=== PATIENT | female | born 1975 | race Asian ===

== ENCOUNTER 2020-12-16 10:15 | Outpatient (CLI) | payer BC, OTHER, SELFPAY ==
--- NOTE | ~2020-12-16 | XR_ITS ---
EXAMINATION: XR chest 2V 12/16/2020 10:30 INDICATION: Cough PROCEDURE: 2 view chest COMPARISON: No prior studies for comparison. FINDINGS: The lungs are clear. The cardiomediastinal silhouette is within normal limits. There are no pleural effusions. There is no pneumothorax suspected. IMPRESSION: 1: NO ACUTE CARDIOPULMONARY DISEASE. Reviewed, dictated and finalized at location B.
== END 2020-12-16 10:16 | disposition home or self-care (01) ==
LOC: ANHIMG 10:22
PROVIDERS: PCP Family Medicine; Visit Provider Family Medicine
DX: R05 Cough (principal)
CPT/HCPCS: 71046

== ENCOUNTER 2021-03-14 10:11 | Outpatient (CLI) | payer BC, OTHER, SELFPAY ==
--- NOTE | ~2021-03-14 | XR_ITS ---
EXAMINATION: XR lumbar spine min 4V DATE: 03/14/2021 10:35 INDICATION: Low back pain TECHNIQUE: Anteroposterior, lateral, and bilateral oblique views of the lumbar spine, and cone-down l ateral view of the lumbosacral junction were obtained. COMPARISON: 05/07/2019 FINDINGS: There is no fracture, dislocation, or subluxation. The vertebral body heights are normal. T here is unchanged mild loss of intervertebral disc space height at L4-5 with anterior endplate osteop hytes at this disc level. There is mild facet osteoarthritis of the lower lumbar spine IMPRESSION: 1. Mild lumbar spondylosis without acute findings or significant interval change. Reviewed, dictated and finalized at location A. IMPRESSION: 1. Mild lumbar spondylosis without acute findings or significant interval kimble theo
== END 2021-03-14 10:12 | disposition home or self-care (01) ==
PROVIDERS: PCP Family Medicine; Visit Provider Family Medicine
DX: M47.896 Other spondylosis, lumbar region (principal)
CPT/HCPCS: 72110

== ENCOUNTER → 2021-11-29 12:31 | Outpatient (CLI) | payer OTHER, SELFPAY ==
--- NOTE | ~2021-11-29 | US_ITS ---
EXAMINATION: US pelvic complete DATE: 11/29/2021 12:55 INDICATION: Hypertrophy of the uterus TECHNIQUE: Multiple transabdominal and endovaginal sonographic images of the pelvis were obtained. COMPARISON: None. FINDINGS: The uterus measures 11.7 x 4.8 x 6 cm. There is a 6.7 x 8.4 x 6.7 cm hypoechoic mass of the right uterine body with the appearance of an intramural fibroid The endometrial complex measures 13 mm. The right ovary is not visualized however no right adnexal abnormality is seen. The left ovary me asures 2.7 x 2.9 x 2.7 cm. There is normal vascular flow in the left ovary. There is no free fluid in the pelvis. IMPRESSION: 1. 8.4 cm mass of the right uterine body with the appearance of an intramural fibroid. Reviewed, dictated and finalized at location A. IMPRESSION: 1. 8.4 cm mass of the right uterine body with the appearance of an intramural f ibroid.
== END ==
PROVIDERS: PCP Family Medicine; Visit Provider Family Medicine
DX: N85.2 Hypertrophy of uterus (principal)
CPT/HCPCS: 76856

== ENCOUNTER 2024-01-27 08:07 | Outpatient (CLI) | payer OTHER, SELFPAY ==
--- NOTE | ~2024-01-27 | US_ITS ---
Limited Abdominal Sonogram: Real-time sonographic imaging of the right upper quadrant was performed. Clinical History: Right upper quadrant pain Findings: The liver appears normal with no evidence of solid mass lesion or bile duct dilatation. Sm all hepatic cyst present. Main portal vein demonstrates normal direction of flow. The gallbladder is well distended, and appears normal with no evidence of gallstone or wall thickening. The common bile duct measures 4 mm. The visualized pancreas, aorta, and IVC are unremarkable. Impression: No significant abnormality seen. Reviewed, dictated and finalized at location M. Impression: No significant abnormality seen.
== END 2024-01-27 08:08 | disposition home or self-care (01) ==
LOC: ANHIMG 08:09
PROVIDERS: PCP Family Medicine; Visit Provider Physician Assistant
DX: R17 Unspecified jaundice (principal)
CPT/HCPCS: 76705

== ENCOUNTER 2024-02-13 10:11 | Outpatient (CLI) | payer OTHER, SELFPAY | END 2024-02-13 10:12 | disposition home or self-care (01) | LOC: ANHSURGERY 10:14 | PROVIDERS: PCP Family Medicine; Visit Provider Obstetrics & Gynecology | DX: D25.9 Leiomyoma of uterus, unspecified (principal) | CPT/HCPCS: 36415; 86850; 86900; 86901 ==

== ENCOUNTER 2024-02-19 16:25 | Inpatient (IN) | payer OTHER, SELFPAY ==
[2024-02-11 12:37] VITALS: BMI 20.8
--- NOTE | 2024-02-11 12:43 | PC.NURSE ---
Report to the Outpatient Waiting Room, entrance under the green pavilion located off [facility], at time _0830_ on date _[id number]_. Planned Procedure Time: _1030_. Time changes happen often and if your time is changed the preop area will call you the afternoon before. - You and your visitor will be asked to self-screen and do not enter if you have any COVID symptoms. - A mask is optional within the hospital at this time. Patients may have clear liquids (water, carbonated beverages, clear teas, apple juice) until 3 hours prior to surgery with a maximum of 20 ounces. - No food from midnight until time of surgery Take the following medications with a SIP of water the morning of surgery: ____None DO NOT STOP ANY OF YOUR OTHER PRESCRIPTION MEDICATIONS PRIOR TO SURGERY ?EXCEPT THE FOLLOWING Medications to discontinue per physician Multivitamin Date to take last [id number]____[id number] Please no make-up, nail kazakh, hairspray, perfume, deodorant, or body powder the day of surgery. No jewelry (including any body piercings) or valuables the day of surgery, leave them at home. Please take a shower or bath the night before, or the morning of, surgery with an antibacterial soap. Wear comfortable, loose fitting clothing. - Jewelry must be removed prior to entering the operating room. Rings and piercings that are not removed may be cut off. - The hospital will not accept responsibility for valuables. - Please leave all valuables, including medications, at home the day of surgery. If you are going home after surgery, a licensed limb driver must drive you home. - NO public transportation without another adult if you receive anesthesia. - We recommend that an adult stay with you for 24 hours following discharge. - We also recommend that you do not drive, make important decision, drink alcoholic beverages, or take any drugs that were not prescribed by your health care provider for at least 24 hours after your discharge time. Follow any additional instructions given to you from your surgeon. If you or anyone in your household have experienced Covid symptoms in the past week, please notify your surgeon or the nurse liaison at the phone number below for possible testing. Telephone instructions given to _Lin_and asked if any additional questions and then verbalized understanding. Patient advised to call surgeon office or pre surgery nurse liaison [phone] if any additional questions.
[2024-02-19] VITALS (10 sets, daily range): BP systolic 93–106; BP diastolic 53–67; PULSE 66–94; RESP 12–20; TEMP 35.9–37.3; O2SAT 98–100
--- NOTE | ~2024-02-19 | XR_ITS ---
EXAMINATION: XR abdomen/kub 1V DATE: 02/20/2024 11:13 INDICATION: Stent placement. TECHNIQUE: A supine view of the abdomen was obtained. COMPARISON: None. FINDINGS: There are no dilated loops of bowel. There is a right internal ureteral stent in expected p osition. A surgical drain overlies the pelvis. IMPRESSION: 1. Right internal ureteral stent in expected position. Reviewed, dictated and finalized at location E.
[2024-02-19] MEDS: ACETAMINOPHEN 500 MG TABLET 1000 MG PO (08:55)
[2024-02-19] MEDS: KETOROLAC 15 MG/ML VIAL (*BKC) IV PUSH (09:05)
--- NOTE | 2024-02-19 09:51 | P.PNAN_ITS ---
Anes - Initial Pre Proc Eval Procedure: Operation Date: 02/19/24 10:30 Proposed Procedures p Total Abdominal Hysterectomy with Bilateral Salpingectomy - Raj Munroe MD Date/Time: 02/19/24 09:51 Surgeon: Raj Munroe MD Pre Op Diagnosis: uterine leiomyoma Patient Data Age: 49 Gender: F Height: 1.65 m Weight: 54.5 kg Last Vital Signs Temp 36.6 C 02/19/24 08:39 Pulse 66 02/19/24 08:39 Resp 20 02/19/24 08:39 BP 106/67 02/19/24 08:39 Pulse Ox 100 02/19/24 08:39 O2 Del Method Room Air 02/19/24 08:39 Allergies Allergy/AdvReac Type Severity Reaction Status Date / Time No Known Allergies Allergy Unverified 02/19/24 08:41 Home Medications Medication Instructions Recorded Confirmed Type multivitamin 1 tablet PO DAILY 02/11/24 02/19/24 History Patient hx anesthesia problems: none Family hx anesthesia problems: none Results Review: All pre-operative results and documents have been reviewed as part of the pre- operative evaluation. [facility] Social History Social History Social History: Smoking status: Never smoker Second hand tobacco smoke exposure: No Alcohol intake: current Drinks per week: 1 Alcohol use details: Occasionally Substance use: never Substance use type: does not use Living arrangements: with family Occupation/Education: occupation Gender identity (if verbalized by the patient): Female Sexual Orientation (if Verbalized by the Patient): Straight or Heterosexual Spiritual care concerns: No Anes - Eval Final PreProcedure Day of Procedure 02/19/24 09:51 Patient weight: normal Heart: regular rate and rhythm Lungs: clear to auscultation Airway: Mallampati scale class II Neurological: alert and oriented Last oral intake: >/= 8 hours ASA classification: I Emergent: no Anesthetic plan: proceed Anesthesia type and monitoring: general and standard monitoring Results Review: All pre-operative results and documents have been reviewed as part of the pre- operative evaluation. Informed Consent: The patient's anesthetic plan and its attendant risks and benefits were discussed with the patient/family/POA. Questions were solicited and answers provided to the satisfaction of the patient/family/POA.
[2024-02-19] MEDS: SCOPOLAMINE 1 MG PATCH 1 PATCH TRANSDERM (10:03)
--- NOTE | 2024-02-19 10:09 | WPDHPUPDATE1 ---
History and Physical Update Update Date/Time: 02/19/24 10:09 History and Physical has been reviewed, including an updated exam of the patient. There are NO changes in the patient's condition. Risks, benefits, and alternatives have been discussed and questions answered. Patient agrees to proceed with procedure.
[2024-02-19] MEDS: ceFAZolin 2 GM/D5W 50 ML 2 GM/50 ML BAG IVPB (10:16)
--- NOTE | 2024-02-19 13:10 | PM.CNGS ---
Assessment and Plan Assessment and plan (1) Rectal mass: Code(s): K62.89 - Other specified diseases of anus and rectum Status: Chronic Assessment and Plan: Small 1.5 x 1 cm rectal nodule contiguous with a fibroid nodule associated with attachment to the uterine fibroid. This is on the anterior aspect of the upper rectum. Exact etiology unknown. Discussed with Dr. Munroe during surgery. Recommend outpatient colonoscopy once patient significantly healed from her hysterectomy. If lesions still present, can be biopsied and decisions made regarding resection. My impression intraoperatively is that this is some of the uterine fibroid that has grown on an just inside the upper rectum. (2) Enlarged uterus: Code(s): N85.2 - Hypertrophy of uterus Status: Chronic Assessment and Plan: Large fibroid uterus, already removed at the time of my evaluation. History of Present Illness Consult details Consult date: 02/19/24 Reason for consult: other (Rectal nodule noted during pelvic surgery) Requesting physician: Raj Munroe MD Narrative: The patient is a 49-year-old woman who has had pelvic pain and is known to have an extremely large leiomyoma of the uterus. She was taken to surgery today by Dr. Munroe and during the pelvic dissection, the fibroid uterus was stuck to the anterior wall of the rectum. After the uterus had been removed, Dr. Munroe noted that there was an intraluminal nodule or mass on the anterior wall of the rectum adjacent to the attachment of the leiomyoma. I was asked to see the patient intraoperatively for evaluation. Review of Systems Review of Systems: ROS unobtainable: Yes unobtainable due to endotracheal tube PMFSH Social History Social History Social History: Smoking status: Never smoker Second hand tobacco smoke exposure: No Alcohol intake: current Drinks per week: 1 Alcohol use details: Occasionally Substance use: never Substance use type: does not use Living arrangements: with family Occupation/Education: occupation Gender identity (if verbalized by the patient): Female Sexual Orientation (if Verbalized by the Patient): Straight or Heterosexual Spiritual care concerns: No Meds Home Medications and Allergies Home Medications Medication Instructions Recorded Confirmed Type multivitamin 1 tablet PO DAILY 02/11/24 02/19/24 History Allergies Allergy/AdvReac Type Severity Reaction Status Date / Time No Known Allergies Allergy Unverified 02/19/24 08:41 Vital Signs Vital Signs - 24 hr 02/19/24 08:39 Temperature 36.6 C Pulse Rate 66 Respiratory Rate 20 Blood Pressure 106/67 Pulse Oximetry 100 Oxygen Delivery Room Air Exam Const: General: other (Under general anesthesia) GI: Inspection: incision (Midline lower abdominal incision) and other (Small fibroid nodule upper rectum anterior wall) GI Palp: Yes Palpable mass present (upper rectum, anterior wall is a 1.5 x 1 cm firm, fibrotic adherent nodule) and Yes Other GI palpation findings present (Fibroid nodule external to rectum but contiguous to intraluminal nodule) Results Labs Labs: All other labs normal.
--- NOTE | 2024-02-19 13:28 | SUR.OPER ---
6 Fr. Contour stent taken out and 4.8Fr. stent repacement inserted
--- NOTE | 2024-02-19 13:38 | SUR.OPER ---
Dr. Munroe asked to update family and he agrees.
--- NOTE | 2024-02-19 14:14 | P.CONUR_ITS ---
Assessment and Plan Assessment and plan (1) Transection of ureter of right [place] kidney: Code(s): S37.10XA - Unspecified injury of ureter, initial encounter Status: Acute Assessment and Plan: proceed with intraoperative repair Urology Consult Note HPI Date Seen: 02/19/24 Time Seen: 14:14 Requesting Physician: Raj Munroe MD Primary Care Provider: Leena Briceno MD Consult Narrative Reason for consult: For intra operative right ureteral transection Narrative: Elise Ray is a 49 year old female undergoing an open hysterectomy for an extremely large uterus. Asked to see the patient regarding a intraoperative right ureteral transection. Unable to get any other history from patient. [facility] Social History Social History Social History: Smoking status: Never smoker Second hand tobacco smoke exposure: No Alcohol intake: current Drinks per week: 1 Alcohol use details: Occasionally Substance use: never Substance use type: does not use Living arrangements: with family Occupation/Education: occupation Gender identity (if verbalized by the patient): Female Sexual Orientation (if Verbalized by the Patient): Straight or Heterosexual Spiritual care concerns: No Meds Home Medications and Allergies Home Medications Medication Instructions Recorded Confirmed Type multivitamin 1 tablet PO DAILY 02/11/24 02/19/24 History Allergies Allergy/AdvReac Type Severity Reaction Status Date / Time No Known Allergies Allergy Unverified 02/19/24 08:41 Vital Signs Vital Signs - 24 hr 02/19/24 08:39 Temperature 36.6 C Pulse Rate 66 Respiratory Rate 20 Blood Pressure 106/67 Pulse Oximetry 100 Oxygen Delivery Room Air Results Labs 02/19/24 14:02
[2024-02-19 14:15] LABS: Hemoglobin 8.9 g/dL (12.0-15.0)
--- NOTE | 2024-02-19 14:15 | P.OP_ITS ---
Procedure Note - Detailed Date of Procedure 02/19/24 Pre-op Diagnosis uterine leiomyoma transected right ureter Post-op Diagnosis Same Procedure Performed exploration with repair of transected right ureter, right ureteral stent placement, flexible cystoscopy Surgeon Skyler Rodriguez MD Anesthesia General Description of Procedure patient is already in the operating room status post removal of a large uterine mass. It was noted that she had transection of the right ureter. Evaluation reveals a clean transection. There was approximately 2-3 inches of distal ureter available and plenty of length on the proximal side. At this point time the ureter was spatulatrd. the area that had been transected was further cleaned and sent for separate pathologic review. 4-0 chromic on an RB1 was used to approximate the 2 ureters. The distal ureters fairly narrow and as such a 4.8 Czech contour stent was placed. Flexible cystoscopy was performed to place the wire all the way to the kidney. 4.8 Czech stent was then passed over it. Distal end was coiled in the bladder. A Alex-Azul drain will be placed at the termination procedure by Dr. Munroe. Stent will need to remain for least 6 weeks time. this completes dictation. Please send a copy of op note to my office Estimated Blood Loss 10 Drains Yes Packing No Pathology Yes Complications No immediate complications Condition Stable Disposition PACU
[2024-02-19] MEDS: ceFAZolin SODIUM 1 GM VIAL 2 GM IV PUSH (14:18)
[2024-02-19] MEDS: LACTATED RINGERS 1,000 ML 30 ML IV CONT ×4 (15:02)
[2024-02-19] MEDS: fentaNYL CITRATE INJ (*CRX) 100 MCG/2 ML VIAL 25 MCG IV PUSH ×5 (15:13→16:20)
--- NOTE | 2024-02-19 15:39 | P.OP_ITS ---
Procedure Note - Detailed Date of Procedure 02/19/24 Pre-op Diagnosis uterine leiomyoma , menorrhagia Post-op Diagnosis Same Procedure Performed total abdominal hysterectomy Surgeon Raj Munroe MD Anesthesia General Indications menorrhagia, fibroid uterus, very large, pelvic pain Findings enlarged fibroid uterus, 2500 g, extended above the umbilicus, normal appearing ovaries and tubes Description of Procedure the patient was taken to the operating room. She was prepped and draped in the dorsal supine position after induction of general anesthesia. vertical skin incision was made with scalpel. This carried down to the level the fascia with the knife. The rectus bellies were the midline. The preperitoneal fat was dissected bluntly the peritoneal cavity was entered bluntly. The per itoneal incision extended superiorly good visualization of the bladder. The uterus was tilted out of the pelvis. It was tightly encompassed by the skin incision at the base. Using the LigaSure cautery and clamping and cutting with suture ligation all of the surrounding connective tissue was from the uterus. The anatomy was very distorted. The suppression of the tissue was done tightly along the uterus all along the sides. The pedicles were clamped and transected, ligated in a stepwise fashion down to the cervix. While in the uterus was still in the pelvis. The ureters were examined. The right ureter appeared to be ligated. It was stretched up along the side of the uterus. the procedure was continued. The cervix paracervical tissue was clamped transected and ligated the cervix was then amputated with clamps across the vagina. Pedicles that were clamped were ligated and the vagina was closed with an 0 Vicryl in a running fashion. The rectum was adherent to the back of the cervix. It had to be dissected using sharp and blunt dissection. It was noted that there was a mass associated with the rectum. General surgery was called to evaluate the mass. It is uncertain the location of the mass. It may be transmural, intraluminal, or adherent to the surface of the rectum. Dr. Adams was present to palpate and examined. Please see his consult note. A primary reanastomosis of the the right ureter. This was performed by Dr. Rodriguez. please see his consult and help. After the reanastomosis of the ureter. The abdomen was closed. O loop PDS was used to close the vertical fascial incision. Subcutaneous tissue was irrigated and bleeders were cauterized. The pelvis and abdomen were irrigated prior to closure of the abdominal wall. Copious irrigation was used x2 to thoroughly irrigated. A Alex-Azul drain was placed in pelvis and the drain was placed through the right abdominal wall. It was sewn in with a nylon suture. The skin was closed with subcuticular nicohlas. The Insorb stapler was used. Patient tolerated the procedure well. She taken recovery room stable condition. Sponge lap needle counts were correct x2. Estimated Blood Loss 800 Pathology Yes Complications Other complications ( transection of ureter) Condition Stable
--- NOTE | 2024-02-19 16:35 | PC.NURSE ---
This patient, Elise Ray, was received from PACU on 02/19/24 at 1635. Patient/family oriented to unit policies and routines
[2024-02-19] MEDS: SIMETHICONE 80 MG TAB.CHEW PO (17:06)
[2024-02-19] MEDS: DEXTROSE 5%/0.45% SOD CHL 1,000 ML 125 ML IV CONT (17:07)
[2024-02-19] MEDS: HYDROcodone/acetaminophen (*CRX) 5-325 MG TABLET 1 TAB PO (21:20)
[2024-02-19] MEDS: ONDANSETRON INJ 4 MG/2 ML VIAL IV PUSH (21:25)
[2024-02-20] VITALS (10 sets, daily range): BP systolic 84–100; BP diastolic 47–66; PULSE 73–93; RESP 12–18; TEMP 36.9–38.1; O2SAT 98–100
[2024-02-20] MEDS: SODIUM CHLORIDE 0.9% IV 500 ML 999 ML (01:34)
[2024-02-20 04:46] LABS: Hematocrit 25.5 % (37.0-47.0); Hemoglobin 8.5 g/dL (12.0-15.0); Mean Corpuscular HGB Conc 33.3 g/dl (32-36); Mean Corpuscular Hemoglobin 30.6 pg (26-34); Mean Corpuscular Volume 91.7 fl (80-100); Platelet Count Result 153 k/mm3 (150-375); Red Blood Count 2.78 M/mm3 (4.2-5.4); Red Cell Distribution Width 13.8 % (11.5-14.5)
[2024-02-20] MEDS: SODIUM CHLORIDE 0.9% IV 250 ML 30 ML IV CONT (05:02)
[2024-02-20] MEDS: SIMETHICONE 80 MG TAB.CHEW PO ×3 (08:24→17:15)
[2024-02-20] MEDS: HYDROcodone/acetaminophen (*CRX) 5-325 MG TABLET 1 TAB PO ×2 (08:25→21:18)
--- NOTE | 2024-02-20 10:45 | WPDUROPN2 ---
Progress Note: A&P Assessment and Plan (1) Transection of ureter of right [place] kidney: Code(s): S37.10XA - Unspecified injury of ureter, initial encounter Status: Acute Assessment and Plan: Right ureteral stent to remain x6 weeks. Minimal FIDELINA drainage - will perhaps remove tomorrow. Duration of Bearden catheter to be determined by FIDELINA output. All above discussed with pt. and her . Subjective Subjective Date/Time Seen: 02/20/24 10:45 Interval history: Comfortable, no complaints Review of Systems Cardiovascular: Cardiovascular: Denies chest pain, Denies lightheadedness, Denies palpitations and Denies dyspnea Respiratory: Respiratory: Denies dyspnea Gastrointestinal: Gastrointestinal: Denies diarrhea, Denies nausea and Denies vomiting Genitourinary: Genitourinary: Denies hematuria and Denies dysuria Endocrine: Endocrine: Denies palpitations Exam Const: General: no acute distress Resp: Effort & Inspection: normal respiratory effort GI: Inspection: non-distended and other (incision clean and dry, scant serous FIDELINA drainage) GI Palp: No abdominal tenderness and No Guarding due to palpation present (GI) Auscultation: normal bowel sounds Urinary Catheter: Urinary Catheter: patent and draining and urine clear Objective Data Vital Signs Vital Signs: Vital Signs - 24 hr 02/19/24 15:02 02/19/24 15:15 02/19/24 15:30 Temperature 96.7 F L Pulse Rate 90 82 86 Respiratory Rate 18 16 14 Blood Pressure 103/61 98/59 L 101/61 Pulse Oximetry 100 100 100 Oxygen Delivery Simple Face Mask Simple Face Mask Room Air Oxygen Flow Rate 8 8 02/19/24 15:45 02/19/24 16:00 02/19/24 16:15 Temperature Pulse Rate 87 85 94 Respiratory Rate 16 12 15 Blood Pressure 103/59 L 100/58 L 101/62 Pulse Oximetry 100 98 99 Oxygen Delivery Room Air Room Air Room Air Oxygen Flow Rate 02/19/24 16:45 02/19/24 19:10 02/19/24 23:00 Temperature 98.6 F 99.1 F 98.5 F Pulse Rate 90 93 84 Respiratory Rate 18 12 12 Blood Pressure 98/56 L 100/53 L 93/59 L Pulse Oximetry 100 98 98 Oxygen Delivery Oxygen Flow Rate 02/20/24 05:02 02/20/24 05:17 02/20/24 04:29 Temperature 98.7 F 98.9 F 98.6 F Pulse Rate 89 85 93 Respiratory Rate 12 14 18 Blood Pressure 89/47 L 95/56 L 87/48 L Pulse Oximetry 100 100 98 Oxygen Delivery Oxygen Flow Rate 02/20/24 04:15 02/20/24 06:17 02/20/24 07:17 Temperature 98.6 F 99.3 F 99.3 F Pulse Rate 93 85 86 Respiratory Rate 18 12 16 Blood Pressure 87/48 L 96/55 L 93/54 L Pulse Oximetry 98 98 100 Oxygen Delivery Oxygen Flow Rate 02/20/24 07:30 Temperature 99.3 F Pulse Rate 86 Respiratory Rate 16 Blood Pressure 93/54 L Pulse Oximetry 100 Oxygen Delivery Oxygen Flow Rate Intake/Output Intake/Output: Intake & Output 02/17/24 02/18/24 02/19/24 02/20/24 23:59 23:59 23:59 23:59 Intake Total 150 2867 Output Total 475 1730 Balance -325 1137 Meds/Results Medications: Active Medications Generic Name Dose Route Start Last Admin Trade Name Freq PRN Reason Stop Dose Admin Hydrocodone Bitart/Acetaminophen 1 tab 02/19/24 16:25 02/20/24 08:25 Hydrocodone/Acetaminophen (*Crx) 5-325 Mg Tablet PO 1 tab Q3H PRN Administration Pain Rated 5 or Less Hydrocodone Bitart/Acetaminophen 1 tab 02/19/24 16:25 Hydrocodone/Acetaminophen (*Crx) 10-325 Mg Tablet PO Q3H PRN Pain Rated 6 or Greater Dextrose/Sodium Chloride 1,000 mls @ 125 mls/hr 02/19/24 16:25 02/20/24 05:22 Dextrose 5% Sodium Chloride 0.45% IV CONT Not Given .Q8H LUNA Sodium Chloride 250 mls @ 30 mls/hr 02/20/24 04:32 02/20/24 05:02 Normal Saline Iv IV CONT 02/20/24 12:51 30 mls/hr .Q8H20M STA Administration Ondansetron HCl 4 mg 02/19/24 16:25 02/19/24 21:25 Ondansetron Inj 4 Mg/2 Ml Vial IV PUSH 4 mg Q6H PRN Administration Nausea Simethicone 80 mg 02/19/24 17:00 02/20/24 08:24 Simethicone 80 Mg Tab.Ch
--- NOTE | 2024-02-20 12:01 | PM.GYNPNOP ---
CONCRETE MASON - A/P Assessment and plan (1) Transection of ureter of right [place] kidney: Code(s): S37.10XA - Unspecified injury of ureter, initial encounter Status: Acute Plan 49-year-old female who is postop day 1. After a total abdominal hysterectomy december. She had extraordinarily large fibroid uterus. It was 2500 g. She is a mere 55 kg. She had ureter transection during the surgery. Primary repair, reanastomosis of the ureter performed by . She is recovering well. She has modest pain. She has a drain that has minimal output in the pelvis. She has stent in her right ureter. She is blood tinged urine. She received a unit of blood. She had marked anemia after the case. A unit of blood brought her hemoglobin to 8.9. We will continue to observe the patient and consider discharge tomorrow. discussed fully with Dr. Velasquez. Will consider further tomorrow. Postoperative Procedures: Procedures Operation Date: 02/19/24 10:30 Actual Procedure Side Surgeon p Total Abdominal Hysterectomy with Bilateral Salpingectomy, exam under anesthesia by general surgery, exploration right ureter with ureteral to ureteral anastamosis, flexible cystoscopy by urology Bilateral Raj Munroe MD Postoperative day: 1 Postoperative status: doing well Postoperative plan: see orders Time Spent With Patient Time: Total time spent is greater than 50% in coordination of care (as documented) at patient's floor/unit and/or counseling patient: Time with patient: 15 - 25 minutes CONCRETE MASON- PN:Subj Post-Op Subjective Date/time seen: 02/20/24 12:01 Interval history: Comfortable, no complaints, Subjective: patient reports feeling better, patient has no complaints and pain is well controlled Exam Const: General: healthy appearing, comfortable and no acute distress Resp: Auscultation: clear to auscultation bilaterally, no rales, no rhonchi and no wheezes Cardio: Rate: regular rate Heart sounds: no click, no murmurs and no rubs GI: Inspection: non-distended Auscultation: normal bowel sounds Extrem: General: normal to inspection, no pedal edema and no calf tenderness CONCRETE MASON - PN: Obj Data Vital Signs Vital Signs: Vital Signs - 24 hr 02/19/24 15:02 02/19/24 15:15 02/19/24 15:30 Temperature 96.7 F L Pulse Rate 90 82 86 Respiratory Rate 18 16 14 Blood Pressure 103/61 98/59 L 101/61 Pulse Oximetry 100 100 100 Oxygen Delivery Simple Face Mask Simple Face Mask Room Air Oxygen Flow Rate 8 8 02/19/24 15:45 02/19/24 16:00 02/19/24 16:15 Temperature Pulse Rate 87 85 94 Respiratory Rate 16 12 15 Blood Pressure 103/59 L 100/58 L 101/62 Pulse Oximetry 100 98 99 Oxygen Delivery Room Air Room Air Room Air Oxygen Flow Rate 02/19/24 16:45 02/19/24 19:10 02/19/24 23:00 Temperature 98.6 F 99.1 F 98.5 F Pulse Rate 90 93 84 Respiratory Rate 18 12 12 Blood Pressure 98/56 L 100/53 L 93/59 L Pulse Oximetry 100 98 98 Oxygen Delivery Oxygen Flow Rate 02/20/24 05:02 02/20/24 05:17 02/20/24 04:29 Temperature 98.7 F 98.9 F 98.6 F Pulse Rate 89 85 93 Respiratory Rate 12 14 18 Blood Pressure 89/47 L 95/56 L 87/48 L Pulse Oximetry 100 100 98 Oxygen Delivery Oxygen Flow Rate 02/20/24 04:15 02/20/24 06:17 02/20/24 07:17 Temperature 98.6 F 99.3 F 99.3 F Pulse Rate 93 85 86 Respiratory Rate 18 12 16 Blood Pressure 87/48 L 96/55 L 93/54 L Pulse Oximetry 98 98 100 Oxygen Delivery Oxygen Flow Rate 02/20/24 07:30 02/20/24 11:15 Temperature 99.3 F 100.6 F H Pulse Rate 86 76 Respiratory Rate 16 16 Blood Pressure 93/54 L 84/50 L Pulse Oximetry 100 100 Oxygen Delivery Oxygen Flow Rate Intake/Output Intake/Output: Intake & Output 02/17/24 02/18/24 02/19/24 02/20/24 23:59 23:59 23:59 23:59 Intake Total 150 2867 Output Total 475 1730 Balance -325 1137 Meds/Results Medications: Active Medications Generic Name Dose Route Start Last Admin Trade Name Freq PRN Reason S
[2024-02-20] MEDS: ceFAZolin 1 GM/NS 50 ML 1 GM/50 ML BAG IVPB ×2 (12:28→20:21)
[2024-02-20] MEDS: DEXTROSE 5%/0.45% SOD CHL 1,000 ML 125 ML IV CONT (12:30)
--- NOTE | 2024-02-20 12:59 | WPDANESPN ---
Anes - Prog Note Post-Op Date/Time: 02/20/24 12:59 Cardiovascular status: normal Respiratory status: normal Airway patency: baseline Mental status: baseline Post-Op hydration status: normal Vital Signs: Last Vital Signs Temp 38.1 C H 02/20/24 11:15 Pulse 76 02/20/24 11:15 Resp 16 02/20/24 11:15 BP 84/50 L 02/20/24 11:15 Pulse Ox 100 02/20/24 11:15 O2 Del Method Room Air 02/19/24 16:15 O2 Flow Rate 8 02/19/24 15:15 Pain Score (VAS): 2-3/10 I/O: Intake & Output 02/19/24 02/20/24 02/20/24 23:59 07:59 15:59 Intake Total 100 2867 240 Output Total 20 1730 1470 Balance 80 1137 -1230 Laboratory Tests 02/20/24 04:41 02/19/24 02/19/24 02/20/24 12:30 14:02 04:41 WBC 15.0 H RBC 2.78 L Hgb 8.9 L 8.5 L Hct 27.0 L 25.5 L MCV 91.7 MCH 30.6 MCHC 33.3 RDW 13.8 Plt Count 153 MPV 11.0 H Blood Type B Positive Antibody Screen Negative Crossmatch See Detail Post-procedural complaints: nausea (Patient states feeling nausea with dinner last night and did not eat much. Encouraged patient to try liquids and progress as tolerated. Patient did not feel nauseous at this time. ) Patient Feedback: Patient satisfied with anesthetic care.
[2024-02-20 14:05] LABS: Hematocrit 25.3 % (37.0-47.0); Hemoglobin 8.8 g/dL (12.0-15.0)
[2024-02-21] MEDS: ceFAZolin 1 GM/NS 50 ML 1 GM/50 ML BAG IVPB ×3 (03:56→20:28)
[2024-02-21] MEDS: SIMETHICONE 80 MG TAB.CHEW PO ×3 (08:08→16:41)
[2024-02-21] MEDS: HYDROcodone/acetaminophen (*CRX) 5-325 MG TABLET 1 TAB PO ×3 (08:08→16:41)
[2024-02-21 08:10] VITALS: BP 106/57; PULSE 73; RESP 16; TEMP 37.5; O2SAT 100
[2024-02-21 09:11] LABS: Creatinine Urine < 3.2 mg/dL
--- NOTE | 2024-02-21 10:10 | PM.GYNPNOP ---
GAMING HOST - A/P Assessment and plan (1) Transection of ureter of right [place] kidney: Code(s): S37.10XA - Unspecified injury of ureter, initial encounter Status: Acute (2) Enlarged uterus: Code(s): N85.2 - Hypertrophy of uterus Status: Chronic Plan recovering normally, no creatinine in the intra-abdominal fluid, tolerating p.o., is to ambulate a Postoperative Procedures: Procedures Operation Date: 02/19/24 10:30 Actual Procedure Side Surgeon p Total Abdominal Hysterectomy with Bilateral Salpingectomy, exam under anesthesia by general surgery, exploration right ureter with ureteral to ureteral anastamosis, flexible cystoscopy by urology Bilateral Raj Munroe MD Time Spent With Patient Time: Total time spent is greater than 50% in coordination of care (as documented) at patient's floor/unit and/or counseling patient: Time with patient: 15 - 25 minutes GAMING HOST- PN:Subj Post-Op Subjective Date/time seen: 02/21/24 10:10 , reports feeling weak, moving very little, I have encouraged her to move more, eating very little, not taking pain medication. Denies any nausea, vomiting, fever, chills. She denies any chest pain or shortness of breath. Interval history: Comfortable, no complaints, Exam Const: General: cooperative, healthy appearing, comfortable and no acute distress Orientation/consciousness: oriented to person, oriented to place and oriented to time HENMT: Head: normal to inspection Ears: external ears normal Face/Nose/Sinus: Normal external nose present and normal facial exam Face and sinus: normal facial exam Eyes: General: appearance normal, both eyes and all related structures Neck: Neck: normal visual inspection, trachea midline and supple Resp: Auscultation: clear to auscultation bilaterally, no crackles, no rales, no rhonchi and no wheezes Cardio: Rate: regular rate Rhythm: regular rhythm Heart sounds: no click, no murmurs and no rubs GI: GI Palp: No abdominal tenderness, No Soft to palpation, No Tenderness to palpation present (GI) and No Palpable mass present Auscultation: normal bowel sounds Other: Incision is clean dry and intact, Skin: General skin exam: normal color and no rashes or lesions noted Neuro: General: oriented to person, oriented to place and oriented to time Extrem: General: normal to inspection, no joint enlargement, no clubbing, cyanosis or edema, no pedal edema and no calf tenderness Psych: Appearance: grossly normal Mental Status: mental status grossly normal Speech and movement: Normal speech and movement present GAMING HOST - PN: Obj Data Vital Signs Vital Signs: Vital Signs - 24 hr 02/20/24 11:15 02/20/24 17:10 02/20/24 21:09 Temperature 100.6 F H 98.4 F 98.6 F Pulse Rate 76 73 79 Respiratory Rate 16 18 18 Blood Pressure 84/50 L 98/60 L 100/66 Pulse Oximetry 100 99 Oxygen Delivery 02/20/24 21:09 02/21/24 08:10 Temperature 99.5 F Pulse Rate 79 73 Respiratory Rate 18 16 Blood Pressure 106/57 L Pulse Oximetry 99 100 Oxygen Delivery Room Air Intake/Output Intake/Output: Intake & Output 02/18/24 02/19/24 02/20/24 02/21/24 23:59 23:59 23:59 23:59 Intake Total 150 3557 Output Total 421 4260 680 Rvrxmbq -098 -703 -680 Meds/Results Medications: Active Medications Generic Name Dose Route Start Last Admin Trade Name Freq PRN Reason Stop Dose Admin Hydrocodone Bitart/Acetaminophen 1 tab 02/19/24 16:25 02/21/24 08:08 Hydrocodone/Acetaminophen (*Crx) 5-325 Mg Tablet PO 1 tab Q3H PRN Administration Pain Rated 5 or Less Hydrocodone Bitart/Acetaminophen 1 tab 02/19/24 16:25 Hydrocodone/Acetaminophen (*Crx) 10-325 Mg Tablet PO Q3H PRN Pain Rated 6 or Greater Cefazolin Sodium 1 gm in 50 mls @ 100 mls/hr 02/20/24 12:00 02/21/24 03:56 Ancef 1 Gm/Ns 50 Ml IVPB 100 mls/hr Q8H LUNA Administration Ondansetron HCl 4 mg 02/19/24 16:25 02/19/24 21:25 Ondansetron Inj 4 Mg
--- NOTE | 2024-02-21 10:34 | WPDUROPN2 ---
Progress Note: A&P Assessment and Plan (1) Transection of ureter of right [place] kidney: Code(s): S37.10XA - Unspecified injury of ureter, initial encounter Status: Acute Assessment and Plan: FIDELINA creat. negligible -> drain removed. To maximize drainage will plan to leave escobar catheter in until Saturday -> discussed with pt. and . - if ready for discharge this weekend she can go home with catheter to leg bag and f/u in our office Friday 02/23 @[id number] for catheter removal. Subjective Subjective Date/Time Seen: 02/21/24 10:34 Interval history: Comfortable, tolerating diet Review of Systems Cardiovascular: Cardiovascular: Denies chest pain, Denies lightheadedness, Denies palpitations and Denies dyspnea Respiratory: Respiratory: Denies dyspnea Gastrointestinal: Gastrointestinal: Denies diarrhea, Denies nausea and Denies vomiting Genitourinary: Genitourinary: Denies hematuria and Denies dysuria Endocrine: Endocrine: Denies palpitations Exam Const: General: no acute distress Resp: Effort & Inspection: normal respiratory effort GI: Inspection: non-distended and other (incision clean and dry, scant serous FIDELINA drainage) GI Palp: No abdominal tenderness and No Guarding due to palpation present (GI) Auscultation: normal bowel sounds Urinary Catheter: Urinary Catheter: patent and draining and urine clear Objective Data Vital Signs Vital Signs: Vital Signs - 24 hr 02/20/24 11:15 02/20/24 17:10 02/20/24 21:09 Temperature 100.6 F H 98.4 F 98.6 F Pulse Rate 76 73 79 Respiratory Rate 16 18 18 Blood Pressure 84/50 L 98/60 L 100/66 Pulse Oximetry 100 99 Oxygen Delivery 02/20/24 21:09 02/21/24 08:10 Temperature 99.5 F Pulse Rate 79 73 Respiratory Rate 18 16 Blood Pressure 106/57 L Pulse Oximetry 99 100 Oxygen Delivery Room Air Intake/Output Intake/Output: Intake & Output 02/18/24 02/19/24 02/20/24 02/21/24 23:59 23:59 23:59 23:59 Intake Total 150 3557 240 Output Total 357 4299 680 Balance -314 -523 -738 Meds/Results Medications: Active Medications Generic Name Dose Route Start Last Admin Trade Name Freq PRN Reason Stop Dose Admin Hydrocodone Bitart/Acetaminophen 1 tab 02/19/24 16:25 02/21/24 08:08 Hydrocodone/Acetaminophen (*Crx) 5-325 Mg Tablet PO 1 tab Q3H PRN Administration Pain Rated 5 or Less Hydrocodone Bitart/Acetaminophen 1 tab 02/19/24 16:25 Hydrocodone/Acetaminophen (*Crx) 10-325 Mg Tablet PO Q3H PRN Pain Rated 6 or Greater Cefazolin Sodium 1 gm in 50 mls @ 100 mls/hr 02/20/24 12:00 02/21/24 03:56 Ancef 1 Gm/Ns 50 Ml IVPB 100 mls/hr Q8H LUNA Administration Ondansetron HCl 4 mg 02/19/24 16:25 02/19/24 21:25 Ondansetron Inj 4 Mg/2 Ml Vial IV PUSH 4 mg Q6H PRN Administration Nausea Simethicone 80 mg 02/19/24 17:00 02/21/24 08:08 Simethicone 80 Mg Tab.Chew PO 80 mg TIDWM LUNA Administration Radiology Results: ITS Impressions Abdomen X-Ray 02/20/24 11:15 IMPRESSION: 1. Right internal ureteral stent in expected position. Labs Labs: Laboratory Results - last 24 hr 02/20/24 02/21/24 13:58 08:38 Hgb 8.8 L Hct 25.3 L Urine Creatinine < 3.2
--- NOTE | 2024-02-21 10:35 | PM.OBDSVD ---
OB - DS: Summary Peripartum Data Procedures: Procedures Operation Date: 02/19/24 10:30 Actual Procedure Side Surgeon p Total Abdominal Hysterectomy with Bilateral Salpingectomy, exam under anesthesia by general surgery, exploration right ureter with ureteral to ureteral anastamosis, flexible cystoscopy by urology Bilateral Raj Munroe MD Time Spent with Patient Time attestation: Total time spent providing and/or coordinating discharge services: DS: Data Data Completed and Pending Pending studies at discharge: Pending at discharge 02/19/24 11:52 Surgical [PTH] Routine Surgical [PTH] Routine Surgical [PTH] Routine Labs on day of discharge: Labs from last 24 hours 02/21/24 02/20/24 08:38 13:58 Hgb 8.8 L Hct 25.3 L Urine Creatinine < 3.2 Discharge Plan Discharge Discharge Instructions: Remove the Scopolamine patch that was placed behind your ear in 72 hours or less. Wash your hands after touching. Stand Alone Forms: General Discharge Instructions Discharge Medications: New oxycodone-acetaminophen 5-325 mg tablet 1 tablet PO Q4H PRN (Reason: pain) Qty: 25 0RF Continued multivitamin Tablet 1 tablet PO DAILY Date of admission: 02/19/24 16:25 Primary Care Provider: Leena Briceno Admitting Provider: Raj Munroe Attending physician on admission: Raj Munroe
[2024-02-21 12:00] VITALS: BP 97/55; PULSE 69; RESP 16; TEMP 37.1; O2SAT 99
[2024-02-21 16:00] VITALS: BP 112/71; PULSE 79; RESP 18; TEMP 36.9; O2SAT 98
[2024-02-21] MEDS: ONDANSETRON INJ 4 MG/2 ML VIAL IV PUSH (16:53)
[2024-02-21] MEDS: HYDROmorphone HCL INJ (*CRX) 1 MG/ML SYR IV PUSH (19:11)
--- NOTE | 2024-02-21 19:28 | PC.NURSE ---
Pt. stated at 1200 that she had been eating more and feeling better. 2 empty trays taken out of room. Pt. now reporting unable to eat today due to upset stomach. had been providing food. Pt. encouraged to eat more with medication and continue to use IS. Suppository ordered and offered to pain. Declining at this time. IV pain medication given. Will continue to monitor.
[2024-02-21 20:00] VITALS: BP 103/66; PULSE 74; RESP 20; TEMP 36.8; O2SAT 99
[2024-02-21] MEDS: BISACODYL 10 MG SUPPOSITORY RECTAL (20:28)
[2024-02-22 01:00] VITALS: BP 95/68; PULSE 71; RESP 14; TEMP 36.7; O2SAT 99
[2024-02-22] MEDS: ceFAZolin 1 GM/NS 50 ML 1 GM/50 ML BAG IVPB ×2 (03:58→11:51)
[2024-02-22 07:50] VITALS: BP 98/58; PULSE 68; RESP 16; TEMP 36.6; O2SAT 100
--- NOTE | 2024-02-22 09:44 | PM.GYNPNOP ---
ANGER CONTROL COUNSELOR - A/P Assessment and plan (1) Transection of ureter of right [place] kidney: Code(s): S37.10XA - Unspecified injury of ureter, initial encounter Status: Acute (2) Enlarged uterus: Code(s): N85.2 - Hypertrophy of uterus Status: Chronic (3) Status post hysterectomy: Code(s): Z90.710 - Acquired absence of both cervix and uterus Status: Acute Plan urine still blood-tinged, Dr. Velasquez to see later, considering home with leg bag, could take this out in my office on Saturday. Postop anemia, treated with 1 unit of blood. Stable, recovering normally. No urine in abdomen yesterday. Postoperative Procedures: Procedures Operation Date: 02/19/24 10:30 Actual Procedure Side Surgeon p Total Abdominal Hysterectomy with Bilateral Salpingectomy, exam under anesthesia by general surgery, exploration right ureter with ureteral to ureteral anastamosis, flexible cystoscopy by urology Bilateral Raj Munroe MD Time Spent With Patient Time: Total time spent is greater than 50% in coordination of care (as documented) at patient's floor/unit and/or counseling patient: Time with patient: 15 - 25 minutes ANGER CONTROL COUNSELOR- PN:Subj Post-Op Subjective Date/time seen: 02/22/24 09:44 Reports intra-abdominal gas pain, dizzy with standing, weakness. Has moved very little. Passing flatus, no nausea, vomiting, fever, chills. Interval history: Comfortable, tolerating diet Exam Const: General: cooperative, healthy appearing, comfortable and no acute distress Orientation/consciousness: oriented to person, oriented to place and oriented to time HENMT: Head: normal to inspection Ears: external ears normal Face/Nose/Sinus: Normal external nose present and normal facial exam Face and sinus: normal facial exam Eyes: General: appearance normal, both eyes and all related structures Neck: Neck: normal visual inspection, trachea midline and supple Resp: Auscultation: clear to auscultation bilaterally, no crackles, no rales, no rhonchi and no wheezes Cardio: Rate: regular rate Rhythm: regular rhythm Heart sounds: no click, no murmurs and no rubs GI: GI Palp: No abdominal tenderness, No Soft to palpation, No Tenderness to palpation present (GI) and No Palpable mass present Auscultation: normal bowel sounds : Other: Vertical skin incision, intact, clean, dry, no erythema. Skin: General skin exam: normal color and no rashes or lesions noted Neuro: General: oriented to person, oriented to place and oriented to time Extrem: General: normal to inspection, no joint enlargement, no clubbing, cyanosis or edema, no pedal edema and no calf tenderness Psych: Appearance: grossly normal Mental Status: mental status grossly normal Speech and movement: Normal speech and movement present ANGER CONTROL COUNSELOR - PN: Obj Data Vital Signs Vital Signs: Vital Signs - 24 hr 02/21/24 12:00 02/21/24 16:00 02/21/24 20:00 Temperature 98.8 F 98.4 F 98.2 F Pulse Rate 69 79 74 Respiratory Rate 16 18 20 Blood Pressure 97/55 L 112/71 103/66 Pulse Oximetry 99 98 99 02/22/24 01:00 Temperature 98.1 F Pulse Rate 71 Respiratory Rate 14 Blood Pressure 95/68 L Pulse Oximetry 99 Intake/Output Intake/Output: Intake & Output 02/19/24 02/20/24 02/21/24 02/22/24 23:59 23:59 23:59 23:59 Intake Total 150 3557 990 250 Output Total 475 4260 1580 500 Balance -325 -703 -590 -250 Meds/Results Medications: Active Medications Generic Name Dose Route Start Last Admin Trade Name Freq PRN Reason Stop Dose Admin Hydrocodone Bitart/Acetaminophen 1 tab 02/19/24 16:25 02/21/24 16:41 Hydrocodone/Acetaminophen (*Crx) 5-325 Mg Tablet PO 1 tab Q3H PRN Administration Pain Rated 5 or Less Hydrocodone Bitart/Acetaminophen 1 tab 02/19/24 16:25 Hydrocodone/Acetaminophen (*Crx) 10-325 Mg Tablet PO Q3H PRN Pain Rated 6 or Greater Hydromorphone HCl 1 mg 02/21/24 18:56 02/21/24 19:11 Hydromorphone Hcl Inj (*Cr
[2024-02-22] MEDS: HYDROcodone/acetaminophen (*CRX) 5-325 MG TABLET 1 TAB PO ×2 (09:52→14:22)
[2024-02-22] MEDS: SIMETHICONE 80 MG TAB.CHEW PO ×2 (09:52→12:45)
--- NOTE | 2024-02-22 11:00 | PC.NURSE ---
929 Dr. Munroe was here to see patient, patient may be seen in his office on SaturdayFebruary 23 to have catheter removed. Dr. Velasquez to see patient today. 1100 Dr. Velasquez here, OK with having patient seen in Dr. Munroe's office on Saturday for catheter removal. Per Dr. Velasquez, RN to apply catheter leg bag to be used during the day, patient may shower with that on, patient can use a larger bedside bag @ night for collection of urine. RN to show both the patient and her how to empty and change the leg bag to the larger bag. Patient requesting a suppository, Dr. Velasquez to order and pt also requesting Mylicon PO for discharge RX, Dr. Velasquez to also order.
[2024-02-22] MEDS: BISACODYL 10 MG SUPPOSITORY RECTAL (12:46)
--- NOTE | 2024-02-22 13:25 | PC.NURSE ---
Patient and shown how to empty the catheter leg bag and how to change the leg bag to the larger bedside bag at night.
--- NOTE | 2024-02-22 14:00 | PC.NURSE ---
This RN changed the original escobar bag to a leg bag and her was given instructions again on how to change the leg bag back to a larger bag at night.
--- NOTE | 2024-03-09 09:34 | PM.DS ---
DS: Admitting Diagnosis Discharge Date 02/22/24 Admitting Diagnosis myoma DS: Discharge Diagnosis Discharge Diagnosis (1) Status post hysterectomy: Code(s): Z90.710 - Acquired absence of both cervix and uterus Status: Acute DS: Summary Hospital Course Hospital Course: 49-year-old female admitted for hysterectomy for very large myomatous uterus. Injury to the ureter occurred. The ureter was reanastomosed during the procedure. She was observe her 2-3 days. Stent was placed during the surgery. She was discharged with stents and Bearden catheter. Bearden catheter was removed in 2 days in the office. She was afebrile, and her pain was well controlled throughout her stay. She was ambulating, tolerating p.o., passing flatus at appropriate times. Time Spent with Patient Time attestation: Total time spent providing and/or coordinating discharge services: DS: Data Data Completed and Pending Completed studies during hospitalization: Pending at discharge 02/19/24 11:52 Surgical [PTH] Routine Surgical [PTH] Routine Surgical [PTH] Routine Discharge Plan Discharge Attending physician on discharge: Raj Munroe Consulting providers: Skyler Rodriguez; Mera Lin; Julio C Adams; Se Velasquez; Marco Soares V.; Jarvis Matamoros Discharging Clinician: Raj Munroe Patient Disposition: Home, Self-Care Activity: december shower Diet: regular Discharge Instructions: 1) Bearden catheter -> leg bag / bedside bag at night. 2) No lifting/straining >15lbs. x6 weeks. 3) No driving x1-week. 4) Resume normal, pre-operative diet. 5) F/U: Dr. Munroe 02/[address] Rodriguez 2-weeks 6) Remove the Scopolamine patch that was placed behind your ear in 72 hours or less. Wash your hands after touching. Patient Instructions: Hysterectomy (DC), How to Change a Catheter Drainage Bag (DC) Stand Alone Forms: General Discharge Instructions Follow-up/Referrals: Raj Munroe MD [Physician] - Call for Appointment (Call for appointment ) Skyler Rodriguez MD [Physician] - 2 Weeks (Call for appointment ) Discharge Medications: New oxycodone-acetaminophen 5-325 mg tablet 1 tablet PO Q4H PRN (Reason: pain) Qty: 25 0RF simethicone 250 mg capsule 250 mg PO BID PRN (Reason: abdominal distention) Qty: 30 0RF hydrocodone-acetaminophen 5-325 mg tablet 1 tablet PO Q4H PRN (Reason: pain) Qty: 7 0RF Continued multivitamin Tablet 1 tablet PO DAILY Date of admission: 02/19/24 16:25 Primary Care Provider: Leena Briceno Admitting Provider: Raj Munroe Attending physician on admission: Raj Munroe Condition: Stable
== END 2024-02-22 14:25 | disposition home or self-care (01) | DRG 742 ==
LOC: ANHOB2 16:30
PROVIDERS: Urology; Admitting Provider Obstetrics & Gynecology; PCP Family Medicine; Visit Provider Obstetrics & Gynecology
PROC: 0UT94ZZ Resection of Uterus, Percutaneous Endoscopic Approach (ICD-10-PCS; principal; 2024-02-19 10:30)
DX: D25.9 Leiomyoma of uterus, unspecified (principal); N99.71 Accidental puncture and laceration of a genitourinary system organ or structure during a genitourinary system procedure; K62.89 Other specified diseases of anus and rectum; N92.0 Excessive and frequent menstruation with regular cycle; N85.2 Hypertrophy of uterus
CPT/HCPCS: 36415; 36430; 74018; 82570; 85014; 85018; 85027; 86850; 86900; 86901; 86923; 88305; 88307; 88342; A9270; C1769; C2617; J0690; J1100; J1170; J1885; J2250; J2405; J2704; J3010; J7040; J7050; J7120; P9016; Q9968

== ENCOUNTER 2024-05-04 09:42 | Outpatient (CLI) | payer OTHER, SELFPAY ==
--- NOTE | ~2024-05-04 | XR_ITS ---
XR abdomen/kub 1V Ordering provider: Skyler Rodriguez MD History: . URETERAL TRANSECTION OF RIGHT KIDNEY . Comparison: 12/07/2023 FINDINGS: BOWEL: Nonobstructive bowel gas pattern. ORGANOMEGALY: None. SIGNIFICANT PATHOLOGIC CALCIFICATIONS: None. OTHER: No free air is seen under the diaphragm. IMPRESSION: NO ACUTE ABDOMINAL FINDINGS. Reviewed, dictated and finalized at location A.
--- NOTE | ~2024-05-04 | CT_ITS ---
EXAMINATION: CT abdomen pelvis wo/w con DATE: 05/04/2024 10:32 INDICATION: Right ureteral transection TECHNIQUE: Computed tomography (CT) of the abdomen and pelvis was performed without intravenous contr ast. CT of the abdomen and pelvis was then performed with a total of 130 mL Omnipaque-350 intravenous contrast using a double-bolus technique for simultaneous opacification of the renal parenchyma and r enal collecting system. Automated exposure control and iterative reconstruction technique were employ ed. The dose-length product was 585.40 mGy-cm. COMPARISON: None FINDINGS: Lung bases are clear. Heart size is normal. No pericardial or pleural effusion. 8 mm cyst in the left hepatic lobe. Gallbladder, spleen, pancreas and bilateral adrenal glands are normal. The bilateral k idneys enhance symmetrically with no urolithiasis or hydronephrosis. The proximal half of the left ur eter and a 3 cm long segment of the mid to distal right ureter are decompressed with no discernible i ntraluminal contrast. Contrast can be seen extending to the distal aspect of both ureters and fills t he normal-appearing bladder. There is no no urothelial irregularities identified along the contrast o pacified portions of the bilateral renal collecting systems and ureters. The uterus is not identified and has likely been surgically resected. Bilateral ovaries are unremarkable. Bowels including the ap pendix are normal with no obstruction. No abscess, free intraperitoneal gas or fluid. No pathological ly enlarged abdominal or pelvic lymphadenopathy. Moderate to severe right-sided predominant disc heig ht loss with mild degenerative endplate changes at L4-L5. Bones are otherwise unremarkable. IMPRESSION: 1. Bilateral kidneys and ureters are unremarkable with no urolithiasis, hydronephrosis, urothelial ir regularities or extraluminal extravasation. Reviewed, dictated and finalized at location B. IMPRESSION: 1. Bilateral kidneys and ureters are unremarkable with no urolithiasis, hydrone phrosis, urothelial irregularities or extraluminal extravasation.
== END 2024-05-04 09:43 | disposition home or self-care (01) ==
PROVIDERS: PCP Family Medicine; Visit Provider Urology
DX: S37.10XA Unspecified injury of ureter, initial encounter (principal); X58.XXXA Exposure to other specified factors, initial encounter
CPT/HCPCS: 74018; 74178; Q9967

== ENCOUNTER 2024-05-19 02:22 | Day surgery (SDC) | payer OTHER, SELFPAY ==
[2024-05-05 12:07] VITALS: BMI 19.8
[2024-05-19 08:10] VITALS: BP 107/73; PULSE 79; RESP 16; TEMP 36.7; O2SAT 100; BMI 19.5
[2024-05-19] MEDS: LACTATED RINGERS 1,000 ML 30 ML IV CONT (08:33)
--- NOTE | 2024-05-19 08:34 | WPDANESEPPF ---
Anes - Initial Pre Proc Eval Procedure: Operation Date: 05/19/24 09:30 Proposed Procedures p Screening Colonoscopy - Zaki Villatoro DO Date/Time: 05/19/24 08:34 Surgeon: Zaki Vilaltoro DO Pre Op Diagnosis: Other specified diseases of anus and rectum Patient Data Age: 49 Gender: F Height: 1.65 m Weight: 53.4 kg Last Vital Signs Temp 98.1 F 05/19/24 08:10 Pulse 79 05/19/24 08:10 Resp 16 05/19/24 08:10 BP 107/73 05/19/24 08:10 Pulse Ox 100 05/19/24 08:10 O2 Del Method Room Air 05/19/24 08:10 Allergies Allergy/AdvReac Type Severity Reaction Status Date / Time No Known Allergies Allergy Verified 05/19/24 08:19 Home Medications Medication Instructions Recorded Confirmed Type multivitamin 1 tablet PO DAILY 02/11/24 05/19/24 History docusate sodium 100 mg capsule 100 mg PO BID 05/05/24 05/19/24 History (Colace) Patient hx anesthesia problems: none Family hx anesthesia problems: none Results Review: All pre-operative results and documents have been reviewed as part of the pre-operative evaluation. [facility], LAT[facility] Social History Social History Social History: Smoking status: Never smoker Second hand tobacco smoke exposure: No Alcohol intake: current Drinks per week: 1 Alcohol use details: Occasionally Substance use: never Substance use type: does not use Living arrangements: with family Occupation/Education: occupation Gender identity (if verbalized by the patient): Female Sexual Orientation (if Verbalized by the Patient): Straight or Heterosexual Spiritual care concerns: No Anes - Eval Final PreProcedure Day of Procedure 05/19/24 08:34 Patient weight: normal Heart: regular rate and rhythm Lungs: clear to auscultation Airway: Mallampati scale Neurological: alert and oriented Last oral intake: >/= 8 hours ASA classification: I Emergent: no Anesthetic plan: proceed Anesthesia type and monitoring: general GIVS and standard monitoring Results Review: All pre-operative results and documents have been reviewed as part of the pre-operative evaluation. 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 Informed Consent: The patient's anesthetic plan and its attendant risks and benefits were discussed with the patient/family/POA. Questions were solicited and answers provided to the satisfaction of the patient/family/POA.
--- NOTE | 2024-05-19 09:27 | PM.IMHP ---
H&P: HPI History of Present Illness Date/Time: 05/19/24 09:27 Chief Complaint: screening for colorectal cancer Narrative: this is a 49-year-old woman who presents for colonoscopy. She has never had a colonoscopy before. She denies any hematochezia or melena. She denies any family history of colon cancer. Review of Systems Review of Systems: All systems reviewed & are unremarkable except as noted in HPI and below Constitutional: Constitutional: Denies chills, Denies fever(s), Denies headache(s) and Denies weight loss Eyes: Eyes: Denies change in vision ENT: Denies dizziness, Denies headache(s), Denies neck mass and Denies throat swelling Cardiovascular: Cardiovascular: Denies chest pain, Denies lightheadedness and Denies dyspnea Respiratory: Respiratory: Denies cough, Denies dyspnea and Denies wheezing Gastrointestinal: Gastrointestinal: Denies abdominal pain, Denies change in bowel habits, Denies nausea and Denies vomiting Genitourinary: Genitourinary: Denies hematuria and Denies dysuria Musculoskeletal: Musculoskeletal: Reports as per HPI Integumentary/Breasts: Skin/Breast: Reports as per HPI Neurologic: Denies dizziness and Denies headache(s) Allergic/Immunologic: Allergic/Immunologic: Denies throat swelling and Denies wheezing [facility] Social History Social History Social History: Smoking status: Never smoker Second hand tobacco smoke exposure: No Alcohol intake: current Drinks per week: 1 Alcohol use details: Occasionally Substance use: never Substance use type: does not use Living arrangements: with family Occupation/Education: occupation Gender identity (if verbalized by the patient): Female Sexual Orientation (if Verbalized by the Patient): Straight or Heterosexual Spiritual care concerns: No Meds Home Medications and Allergies Home Medications Medication Instructions Recorded Confirmed Type multivitamin 1 tablet PO DAILY 02/11/24 05/19/24 History docusate sodium 100 mg capsule 100 mg PO BID 05/05/24 05/19/24 History (Colace) Allergies Allergy/AdvReac Type Severity Reaction Status Date / Time No Known Allergies Allergy Verified 05/19/24 08:19 Vital Signs Vital Signs - 24 hr 05/19/24 08:10 Temperature 98.1 F Pulse Rate 79 Respiratory Rate 16 Blood Pressure 107/73 Pulse Oximetry 100 Oxygen Delivery Room Air Exam Const: General: no acute distress and alert Orientation/consciousness: patient oriented x3 HENMT: Head: normocephalic and atraumatic Ears: hearing grossly normal bilaterally Face/Nose/Sinus: Normal nares present Mouth: Yes Normal oral and palatal mucosa present Eyes: Periorbital: periorbital findings normal Sclera: sclerae normal EOM: EOMs intact bilaterally Neck: Neck: normal visual inspection, no lymphadenopathy and trachea midline Chest: Chest palpation & inspection: normal inspection of the chest Resp: Effort & Inspection: normal respiratory effort Auscultation: clear to auscultation bilaterally Cardio: Jugular venous distension: no JVD Rate: regular rate Rhythm: regular rhythm Heart sounds: S1 normal heart sound present and S2 normal heart sound present Peripheral pulses: Peripheral pulses 2+ throughout GI: Inspection: normal to inspection GI Palp: Yes Soft to palpation, No Tenderness to palpation present (GI), No Guarding due to palpation present (GI) and No Rebound tenderness present Percussion: Yes normal to percussion Auscultation: normal bowel sounds : General: Yes no CVA tenderness Back/Spine/Pelvis: Back: no CVA tenderness Neuro: General: patient oriented x3, no focal motor deficits and CN's II-XI intact bilaterally Cognition (Neuro): normal cognition Speech: normal speech Motor exam (neuro): 5/5 motor strength present throughout Extrem: General: capillary refill normal and no clubbing, cyanosis or edema Assessment and Plan
[2024-05-19 10:03] VITALS: BP 101/63; PULSE 70; RESP 18; O2SAT 97
[2024-05-19 10:13] VITALS: BP 109/74; PULSE 75; RESP 18; O2SAT 100
[2024-05-19 10:23] VITALS: BP 106/70; PULSE 69; RESP 19; O2SAT 100
== END 2024-05-19 10:31 | disposition home or self-care (01) ==
PROVIDERS: PCP Family Medicine; Visit Provider Surgery
PROC: 0DJD8ZZ Inspection of Lower Intestinal Tract, Via Natural or Artificial Opening Endoscopic (ICD-10-PCS; CPT 45378; principal; 2024-05-19 09:30)
DX: Z12.11 Encounter for screening for malignant neoplasm of colon (principal)
CPT/HCPCS: 45378; J2003; J2371; J2704; J7120

== ENCOUNTER 2024-10-26 13:51 | Outpatient (CLI) | payer OTHER, SELFPAY ==
--- NOTE | ~2024-10-26 | MM_ITS ---
EXAMINATION: MM screening coral BI w amrik HISTORY: Screening mammogram TECHNIQUE: Craniocaudal and mediolateral oblique 3-D tomosynthesis images were obtained and synthetic 2-D images were generated. CAD analysis was submitted and interpreted. COMPARISON: 02/20/2019 BREAST PARENCHYMAL COMPOSITION:Dense: The breasts are extremely dense, which lowers the sensitivity o f mammography. FINDINGS: No suspicious mass, calcification, or architectural distortion are identified in either malinda ast to suggest malignancy. There has been no suspicious interval change. IMPRESSION: No mammographic evidence of malignancy. Recommend routine screening mammography in one year. BI-RADS Category 1: Negative Reviewed, dictated and finalized at location M.
== END 2024-10-26 13:52 | disposition home or self-care (01) ==
LOC: MICIMG 13:53
PROVIDERS: PCP Family Medicine; Visit Provider Physician Assistant
DX: Z12.31 Encounter for screening mammogram for malignant neoplasm of breast (principal)
CPT/HCPCS: 77063; 77067

== ENCOUNTER 2025-03-11 13:51 | Outpatient (CLI) | payer OTHER, SELFPAY ==
--- NOTE | ~2025-03-11 | US_ITS ---
US retroperitoneal comp 03/11/2025 14:40 Procedure: Realtime transabdominal ultrasound of the kidneys and bladder. Indication: Injury to the right ureter Comparison: No prior studies for comparison. Findings: Renal echotexture is normal bilaterally without contour deforming mass or renal calculus. T here is mild right hydronephrosis. The right kidney measures 11.6 cm and left kidney measures 10.8 cm . Bladder within normal limits. Impression: 1: Mild right hydronephrosis. Reviewed, dictated and finalized at location B. Impression: 1: Mild right hydronephrosis.
== END 2025-03-11 13:52 | disposition home or self-care (01) ==
LOC: MICIMG 13:53
PROVIDERS: PCP Family Medicine
DX: S37.10XA Unspecified injury of ureter, initial encounter (principal); X58.XXXA Exposure to other specified factors, initial encounter; N13.30 Unspecified hydronephrosis
CPT/HCPCS: 76770

== ENCOUNTER 2025-04-23 10:32 | Outpatient (CLI) | payer OTHER, SELFPAY ==
--- NOTE | ~2025-04-23 | XR_ITS ---
EXAMINATION: XR shoulder RT min 2V DATE: 04/23/2025 10:47 INDICATION: Pain in right shoulder TECHNIQUE: 4 images of the right shoulder were obtained. COMPARISON: None FINDINGS: No fracture. No dislocation of the right humeral head. Bone mineralization is within normal limits. Questionable right AC separation of indeterminate age. IMPRESSION: 1. No fracture. 2. Questionable right AC separation of indeterminate age. If symptoms persist or worsen, consider a short-term follow-up study or additional imaging for further assessment. Reviewed, dictated and finalized at location Q. IMPRESSION: 1. No fracture. 2. Questionable right AC separation of indeterminate age. If symptoms persist or worsen, consider a short-term follow-up study or additio nal imaging for further assessment.
== END 2025-04-23 10:33 | disposition home or self-care (01) ==
LOC: MICIMG 10:34
PROVIDERS: PCP Family Medicine; Visit Provider Physician Assistant
DX: M25.511 Pain in right shoulder (principal)
CPT/HCPCS: 73030